=== PATIENT | female | born 1975 | race Caucasian/White ===

== ENCOUNTER 2019-04-20 20:17 | Emergency (ER) | payer BC ==
[~2019-04-20] VITALS: Ht 154.9 cm; Wt 108.9 kg
[~2019-04-20 20:17] MED LIST: GLUCOPHAGE500 MG PO; IRON325 PO; LISINOPRIL20 MG PO; ZYRTEC 10 MG TA10 M1 PO
[2019-04-20] MEDS ORDERED: NORVASC 2.5 MG2.5 M1 PO (20:34)
[2019-04-20] MEDS ORDERED: MEDROL DOSPAK21 TA1 PO (21:40)
[2019-04-20] MEDS ORDERED: VENTOLIN HFA 1818 GM INH (21:40)
[2019-04-20] MEDS ORDERED: AZITHROMYCIN 2250 MG PO (21:40)
[2019-04-20 21:50] VITALS: BP 168/77
== END 2019-04-20 21:52 | disposition home or self-care (01) ==
LOC: M.ERS 20:17
DX: J45.901 Unspecified asthma with (acute) exacerbation (principal); I10 Essential (primary) hypertension; Z86.2 Personal history of diseases of the blood and blood-forming organs and certain disorders involving the immune mechanism; Z98.890 Other specified postprocedural states; Z88.1 Allergy status to other antibiotic agents; Z88.0 Allergy status to penicillin